=== PATIENT | male | born 1955 | race American Indian/Alaskan Native ===

== ENCOUNTER 2016-12-09 08:35 | Outpatient (CLI) | payer BC ==
--- NOTE | 2016-12-09 11:07 | XRay Report ---
CERVICAL SPINE, 3 views: History: Neck pain. AP and lateral views of the cervical spine were obtained. There is no evidence of fracture or subluxation. There is loss of the normal cervical lordotic curve suggestive of muscle spasm. Moderate degenerative disc disease is noted at C3-4, C4-5, C5-6 and C6-7. The facet joints are within normal limits. The prevertebral soft tissues are within normal limits. IMPRESSION: Reversal of the normal cervical lordosis. Spondylosis. No acute process is noted.
--- NOTE | 2016-12-09 11:08 | XRay Report ---
LEFT HIP, 2 views: History: Left hip pain. Normal bone mineralization. Early osteoarthritic changes are noted in the left hip. No evidence for fracture, dislocation, osteonecrosis or bone lesion. IMPRESSION: Early osteoarthritic changes. No acute process.
--- NOTE | 2016-12-09 11:09 | XRay Report ---
LUMBOSACRAL SPINE, 3 VIEWS: History: Back pain, hip pain Findings: Mild degenerative disc disease and facet arthropathy are noted at L3-4, L4-5 and L5-S1. There is no evidence for fracture, subluxation or bone lesion. The sacrum and SI joints are within normal limits. Impression: Mild lumbar spondylosis.
== END 2016-12-09 08:36 | disposition home or self-care (01) ==
LOC: XRAY 08:35
DX: M51.37 Other intervertebral disc degeneration, lumbosacral region (principal); M50.31 Other cervical disc degeneration, high cervical region; M50.321 Other cervical disc degeneration at C4-C5 level; M50.322 Other cervical disc degeneration at C5-C6 level; M50.323 Other cervical disc degeneration at C6-C7 level; M47.892 Other spondylosis, cervical region; M12.88 Other specific arthropathies, not elsewhere classified, other specified site; M47.896 Other spondylosis, lumbar region; M16.12 Unilateral primary osteoarthritis, left hip; M40.292 Other kyphosis, cervical region
CPT/HCPCS: 72040; 72100